=== PATIENT | female | born 1995 | race Caucasian/White ===

== ENCOUNTER 2017-03-27 20:16 | Emergency (ER) | payer OTHER ==
[~2017-03-27] VITALS: Ht 175.3 cm; Wt 64.1 kg
[~2017-03-27 20:16] MED LIST: CIPR500T93 PO; NAPR550 PO; ZOFR4TAB3 SL
[2017-03-27 20:34] VITALS: BP 117/79; PULSE 82; RESP 14; TEMP 98.5; O2SAT 98
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
[2017-03-27] MEDS ORDERED: IOHEXOL 350 MG/ML 10 ML VIAL (for RAD DIAG) IV ONE (22:31)
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
[2017-03-27] MEDS ORDERED: IBUP-232 PO (23:17)
[2017-03-27] MEDS ORDERED: KETOROLAC TROMETHAMINE 30 MG/ML (IVP) VIAL IV PUSH ONE (23:30)
[2017-03-27 23:40] VITALS: BP 115/75; PULSE 80; RESP 18; O2SAT 99
== END 2017-03-27 23:39 | disposition home or self-care (01) ==
LOC: PHEFT 20:16
DX: S16.1XXA Strain of muscle, fascia and tendon at neck level, initial encounter (principal); V48.5XXA Car driver injured in noncollision transport accident in traffic accident, initial encounter; Y93.89 Activity, other specified; Y92.411 Interstate highway as the place of occurrence of the external cause; Y99.8 Other external cause status
CPT/HCPCS: 70450; 72125; 73564; 74177; 84703; 99285; L0150; Q9967